=== PATIENT | male | born 1945 | race Caucasian/White ===

== ENCOUNTER 2025-03-15 16:28 | Emergency (ER) | payer MEDICARE, OTHER, SELFPAY ==
[2025-03-15 16:31] VITALS: BP 131/59
--- NOTE | 2025-03-15 18:50 | ED.GENMED ---
History of Present Illness
General
Chief Complaint: Skin Problem
Time Seen by Provider: 03/15/25 18:02
History of Present Illness
History of Present Illness:
Patient is a 79-year-old man with recent admission after having a partial right foot amputation at [facility] presenting to the emergency department at the request of wound care for concern for surgical site infection. Per patient he was discharged
on January 21 with a wound VAC in place. Today had follow-up with the wound care crabber and they were concerned about infection so they told him to come to the emergency room for further evaluation. No fevers chills. He does have some redness
and streaking to the right lower extremity. He is having some drainage at the surgical site.
Phy Exam
Physical Exam
Physical Exam:
GENERAL: in no acute distress
HEENT: normocephalic, extraocular movements intact, moist oral mucosa
NECK: normal inspection
RESPIRATORY: no respiratory distress, clear to auscultation bilaterally
CARDIOVASCULAR: regular rate and rhythm
ABDOMEN/: soft, non-distended, non-tender to palpation, no rebound or guarding
EXTREMITIES: Right lower extremity with swelling and with streaking up the anterior jack, tenderness to the right calf, surgical site with open wound with some granulation tissue but also mild purulent foul-smelling drainage
NEUROLOGIC: awake and alert, moves all extremities
SKIN: warm
Course
Orders/Labs/Results
Orders:
Orders
03/15/25 16:38
CR Foot - Right Min 3 Views Urgent
Comment:
Reason For Exam: infection post amputation
03/15/25 18:49
Complete Blood Count/With Diff Urgent
Comprehensive Metabolic Panel Urgent
Magnesium Urgent
Comment: ADD ON
03/15/25 19:14
Oxycodone [Roxicodone] 5 mg PO NOW STA
03/15/25 19:19
Type+Screen Urgent
03/15/25 19:35
Potassium Chloride [KCl] 40 meq PO NOW STA
03/15/25 20:09
Piperacillin/Tazo 4.5 Gram [Zosyn] 4.5 gram in 100 ml IV NOW
Vancomycin [Vancocin] 2,000 mg 0.9% Sodium Chloride 500 ml [Nss] 500 ml IV NOW
03/15/25 20:40
Add On- LAB Urgent
Tests Added?: magnesium
Abnormal Lab Results
03/15/25
18:49
WBC 13.1 H 10^3/uL
(4.8-10.8)
RBC 2.23 L 10^6/uL
(4.70-6.10)
Hgb 6.8 L* g/dL
(13.0-18.0)
Hct 19.5 L* %
(39.0-52.0)
MPV 11.0 H fL
(7.4-10.4)
Abs Immat Gran (auto) 1.1 H 10^3/uL
(0-0.05)
Absolute Neuts (auto) 8.9 H 10^3/uL
(1.4-6.5)
Absolute Monos (auto) 1.7 H 10^3/uL
(0.1-0.6)
Immature Gran % 8.4 H %
(0-0.5)
Lymphocytes % 11.0 L %
(20.5-51.1)
Monocytes % 12.6 H %
(1.7-9.3)
Sodium 133 L mmol/L
(135-145)
Potassium 2.9 L mmol/L
(3.5-5.1)
Chloride 108 H mmol/L
(98-107)
Carbon Dioxide 20 L mmol/L
(22-30)
BUN 25 H mg/dl
(9-20)
Glucose 248 H mg/dl
(70-99)
Calcium 7.7 L mg/dl
(8.4-10.2)
Alkaline Phosphatase 143 H U/L
(38-126)
Albumin 2.7 L g/dl
(3.5-5.0)
03/15/25 18:49
03/15/25 18:49
Vital Signs
Initial and Last Documented VS:
Initial Vital Signs
Temp Pulse Resp BP Pulse Ox
97.4 F 69 18 131/59 100
03/15/25 16:31 03/15/25 16:31 03/15/25 16:31 03/15/25 16:31 03/15/25 16:31
Last Documented Vital Signs
Temp Pulse Resp BP Pulse Ox
97.4 F 68 15 140/61 98
03/15/25 16:31 03/15/25 21:00 03/15/25 21:00 03/15/25 21:00 03/15/25 21:00
MDM/Problems Addressed
Differential Diagnosis Includes:
Patient is a 79-year-old man presenting to the emergency department worsening foot pain after amputation to the right foot. On arrival vitals unremarkable. Exam does show redness swelling worsening drainage to the right foot. Concern for
cellulitis, osteomyelitis. No crepitus felt. Less likely be necrotizing soft tissue infection. X-ray per my interpretation with no gas. Per the official read concern for osteomyelitis. Will discuss with podiatry will start IV antibiotics in the
meantime.
*Pulse Oximetry
SaO2: 100
Oxygen Mode of Delivery: Room air
Update Note
Update Note:
Discussed with podiatry Dr. Lozano who states that their group is at [facility]. Discussed with accepting hospitalist dr asher at [place].
Patient notified as patient had an episode of nonsustained V. tach. Patient asymptomatic. No chest pain. Will add on magnesium.
Hemoglobin is 6.8. He is not actively bleeding. He is hemodynamically stable. Will await transfusion until patient gets to [place] as to not waste resources.
ED Attending Note
-
Portions of this chart may have been created with voice recognition software.� Occasional wrong word or��sound alike� substitutions may have occurred due to the inherent limitations of voice recognition software.
Discharge Plan
Departure
Patient Disposition: Acute Care Hospital
Date of Disposition: 03/15/25
Time of Disposition: 20:59
Discharge Problem:
Osteomyelitis
Referrals:
PRIVATE,PHYSICIAN [Family Provider, Internal Medicine]
Hospital Transfer
Other hospital: [facility]
I certify that the patient requires transfer: Yes
Discussed case with accepting physician: dr asher
Reason for transfer: specialties available
Interventions
Interventions:
*Risk Screen - Suicide Last Done: 03/15/25 16:31
*General Assessment Last Done: 03/15/25 16:31
*Neglect/Abuse Screening Last Done: 03/15/25 19:37
*ED COVID-19 Vaccine History Last Done: 03/15/25 16:31
*ED Influenza Vaccine History Last Done: 03/15/25 16:31
ED-Skin Assessment Last Done: 03/15/25 19:38
Discharge Date and Time
Print Language: GUINEAN
[2025-03-15 19:10] LABS: ALT (SGPT) 28 U/L (0-50); AST (SGOT) 17 U/L (17-59); Albumin 2.7 g/dl (3.5-5.0); Alkaline Phosphatase 143 U/L (38-126); Blood Urea Nitrogen 25 mg/dl (9-20); Calcium 7.7 mg/dl (8.4-10.2); Carbon Dioxide 20 mmol/L (22-30); Chloride 108 mmol/L (98-107); Glucose 248 mg/dl (70-99); Potassium 2.9 mmol/L (3.5-5.1); Sodium 133 mmol/L (135-145); Total Protein 6.4 g/dl (6.3-8.2); eGFR > 60.00
[2025-03-15 19:16] LABS: Hematocrit 19.5 % (39.0-52.0); Hemoglobin 6.8 g/dL (13.0-18.0); Mean Corp Hgb Conc. 34.9 g/dL (33.0-37.0); Mean Corpuscular Volume 87.4 fL (80.0-94.0); Platelet Count 214 10^3/uL (130-400); Red Cell Dist. Width 14.3 % (11.5-14.5)
[2025-03-15] MEDS: ROXICODONE 5 MG PO (19:16)
[2025-03-15 19:21] VITALS: BP 152/67
[2025-03-15 19:24] LABS: Nucleated Red Blood Cells % 0 % (-)
[2025-03-15 19:25] LABS: Anisocytosis 2+; Hypochromasia 1+; Normal RBC Morphology No
[2025-03-15 20:17] VITALS: BMI 27.8
[2025-03-15] MEDS: KCL 40 MEQ PO (20:20)
[2025-03-15] MEDS: ZOSYN 100 IV (20:20)
[2025-03-15 21:00] VITALS: BP 140/61
[2025-03-15 21:19] LABS: Magnesium 1.9 mg/dl (1.6-2.3)
[2025-03-15] MEDS: VANCOCIN 540 MG IV (21:56)
[2025-03-15 22:00] VITALS: BP 127/62
[2025-03-15 23:00] VITALS: BP 137/60
[2025-03-16] VITALS: BP 137/75
[2025-03-16 00:29] LABS: Glucose - Point of Care 197 mg/dl (70-99)
[2025-03-16] MEDS: ROXICODONE 5 MG PO (00:33)
[2025-03-16 00:43] VITALS: BP 137/62
== END 2025-03-16 01:00 | disposition short-term general hospital (02) ==
LOC: EMR 16:28
PROVIDERS: EMERGENCY PHYSICIAN Student in an Organized Health Care Education/Training Program
DX: T87.43 Infection of amputation stump, right lower extremity (principal); M86.171 Other acute osteomyelitis, right ankle and foot; I47.20 Ventricular tachycardia, unspecified
CPT/HCPCS: 99285; 96365; 96366; 73630; 80053; 82962; 83735; 85025; 86850; 86900; 86901